=== PATIENT | male | born 1970 | race Caucasian/White ===

== ENCOUNTER 2018-03-14 13:25 | Emergency (ER) | payer SELFPAY ==
[~2018-03-14] VITALS: Ht 172.7 cm; Wt 73.6 kg
[2018-03-14 13:30] VITALS: Ht 172.7 cm; Wt 73.6 kg
[2018-03-14 15:01] LABS: BASOPHIL % 0.4 % (0-2); PLATELET COUNT 234 x10^3mcL (130-400); RED CELL DISTRIBUTION WIDTH 11.7 % (11.5-14.5)
[2018-03-14 15:11] LABS: CALCIUM 9.4 mg/dL (8.5-10.1); CARBON DIOXIDE 27.5 mmol/L (21-32); CHLORIDE SERUM 106 mmol/L (98-107); GFR1 > 60 mL/min; GLUCOSE SERUM 83 mg/dL (74-106); POTASSIUM SERUM 4.3 mmol/L (3.5-5.1); SODIUM SERUM 140 mmol/L (136-145)
[2018-03-14 15:16] LABS: ALKALINE PHOSPHATASE 72 U/L (46-116); ALT/SGPT 22 U/L (16-63); AST/SGOT 10 U/L (15-37); BILIRUBIN TOTAL 1.1 mg/dL (0.20-1.00); TOTAL PROTEIN, SERUM 7.3 g/dL (6.4-8.2)
[2018-03-14 16:30] VITALS: BP 121/77
== END 2018-03-14 16:30 | disposition home or self-care (01) ==
LOC: ED 13:25
PROVIDERS: Emergency Medicine
DX: R07.89 Other chest pain (principal); M54.2 Cervicalgia; R51 Headache
CPT/HCPCS: 83880; J1885; Q0092

== ENCOUNTER 2018-06-13 13:01 | Emergency (ER) | payer SELFPAY ==
[~2018-06-13] VITALS: Ht 172.7 cm; Wt 69.4 kg
[2018-06-13 13:06] VITALS: Ht 172.7 cm; Wt 69.4 kg
[2018-06-13 14:28] LABS: CALCIUM 8.4 mg/dL (8.5-10.1); CHLORIDE SERUM 105 mmol/L (98-107); CREATININE SERUM 0.9 mg/dL (0.7-1.3); GFR1 > 60 mL/min; GLUCOSE SERUM 98 mg/dL (74-106); POTASSIUM SERUM 4.1 mmol/L (3.5-5.1); SODIUM SERUM 139 mmol/L (136-145)
[2018-06-13 14:37] LABS: ALKALINE PHOSPHATASE 77 U/L (46-116); ALT/SGPT 23 U/L (16-63); AST/SGOT 12 U/L (15-37); CHOLESTEROL 166 mg/dL (<200); HDL CHOLESTEROL 43 mg/dL (40-60); PHOSPHOROUS 2.8 mg/dL (2.5-4.9); TOTAL PROTEIN, SERUM 7.3 g/dL (6.4-8.2); URIC ACID 4.8 mg/dL (3.5-7.2)
[2018-06-13 14:41] LABS: BASOPHIL % 0.1 % (0-2); PLATELET COUNT 210 x10^3mcL (130-400); RED CELL DISTRIBUTION WIDTH 12.6 % (11.5-14.5)
[2018-06-13 15:34] VITALS: BP 119/78
== END 2018-06-13 15:39 | disposition home or self-care (01) ==
LOC: ED 13:01
PROVIDERS: Emergency Medicine
DX: R07.89 Other chest pain (principal)
CPT/HCPCS: 36415; J1885; Q0092